=== PATIENT | male | born 1970 | race Caucasian/White ===

== ENCOUNTER 2016-11-07 22:36 | Emergency (ER) | payer MEDICAID ==
[~2016-11-07 22:36] MED LIST: METO25TA3
== END 2016-11-08 04:05 | disposition left against medical advice (07) ==
LOC: ER 22:37
DX: S09.90XA Unspecified injury of head, initial encounter (principal); Z53.21 Procedure and treatment not carried out due to patient leaving prior to being seen by health care provider; X58.XXXA Exposure to other specified factors, initial encounter; Y93.89 Activity, other specified; Y92.89 Other specified places as the place of occurrence of the external cause; Y99.8 Other external cause status
CPT/HCPCS: 70450

== ENCOUNTER 2021-03-12 02:39 | Emergency (ER) | payer MEDICAID ==
[~2021-03-12] VITALS: Ht 185.4 cm; Wt 78.0 kg
[~2021-03-12 02:39] MED LIST changes: -METO25TA3; +METO25TA36
[2021-03-12 05:31] VITALS: BP 119/78
[2021-03-12] MEDS ORDERED: IPRATROPIUM BROM 0.5 MG/2.5ML INH SOL NEB ONE (06:00)
[2021-03-12] MEDS ORDERED: ALBUTEROL SULF 2.5 MG/0.5ML(0.5%) NEB SOLN NEB ONE (06:00)
== END 2021-03-12 06:20 | disposition home or self-care (01) ==
LOC: ER 02:39 → EDBD 02:39 → ER 06:20
DX: J18.1 Lobar pneumonia, unspecified organism (principal); R53.83 Other fatigue; J90 Pleural effusion, not elsewhere classified; R06.02 Shortness of breath; Z20.822 Contact with and (suspected) exposure to COVID-19
CPT/HCPCS: 36415; 71045; 87426; 94640; 99284; J7644

== ENCOUNTER 2021-06-25 16:46 | Inpatient (IN) | payer MEDICAID ==
[~2021-06-25] VITALS: Ht 185.4 cm; Wt 83.3 kg
[2021-06-25] MEDS ORDERED: CLINDAMYCIN 600MG IV 50 ML IV ONE (17:30)
[2021-06-25] MEDS ORDERED: SODIUM CHLORIDE 0.9% 500 ML IV ONE (17:30)
[2021-06-25 18:20] LABS: Basophils # (auto) 0.1 10 ^3/uL (0-0.2); Basophils % (auto) 0.5 % (0.0-2.0); Eosinophils # (auto) 0.1 10 ^3/uL (0-0.8); Eosinophils % (auto) 0.8 % (0.0-7.0); Hematocrit 30.8 % (41.0-53.0); Hemoglobin 9.6 g/dL (13.5-17.5); Lymphocytes # (auto) 1.3 10 ^3/uL (0.4-5.4); Lymphocytes % (auto) 7.1 % (10.0-50.0); Mean Corpuscular Hemoglobin 23.5 pg (28.0-32.0); Mean Corpuscular Hgb Conc. 31.2 g/dL (32.0-36.0); Mean Corpuscular Volume 75.4 fL (80.0-100.0); Monocytes # (auto) 0.7 10 ^3/uL (0-1.3); Monocytes % (auto) 3.6 % (0.0-12.0); Neutrophils # (auto) 15.9 10 ^3/uL (1.6-8.6); Red Blood Cells 4.09 10^6/uL (4.5-5.90); Red Cell Distribution Width 16.8 % (11.8-14.3)
[2021-06-25 18:41] LABS: BUN/Creatinine Ratio 11.1; Calcium 8.4 mg/dL (8.5-10.1); Potassium 3.8 mmol/L (3.5-5.1)
[2021-06-25 18:43] LABS: Bilirubin, Total 0.1 mg/dL (0.2-1.0); Lactic Acid w/Reflex 2.6 mmol/L (0.4-2.0); Total Protein 7.1 g/dL (6.4-8.2)
[2021-06-25] MEDS ORDERED: VANCOMYCIN 1GM/250ML 250 ML IV ONE (21:15)
[2021-06-25] MEDS ORDERED: SODIUM CHLORIDE 0.9% 1,000 ML IV ONE (21:15)
[2021-06-25] MEDS ORDERED: ONDANSETRON HCL 4 MG/2 ML VIAL IV PRN (22:15)
[2021-06-25] MEDS ORDERED: levoFLOXacin 500MG 100 ML IV ONE (22:15)
[2021-06-25] MEDS ORDERED: MORPHINE SULFATE 4 MG/ML SYR/VIAL IV PRN (22:15)
[2021-06-25] MEDS ORDERED: ALBUMIN 5% 250 ML IV ONE (22:15)
[2021-06-25] MEDS ORDERED: ACETAMINOPHEN 325 MG TAB PO PRN (22:15)
[2021-06-25] MEDS ORDERED: CLINDAMYCIN 600MG IV 50 ML IV SCH (22:35)
[2021-06-25] MEDS ORDERED: levoFLOXacin 500MG 100 ML IV SCH (22:36)
[2021-06-25] MEDS: SODIUM CHLORIDE 0.9% 1,000 ML IV SCH (23:24)
[2021-06-25 23:44] LABS: Alcohol, Urine < 3.0 mg/dL (0-10); Amphetamine Screen, Urine NEGATIVE (NEGATIVE); Barbiturate Scree,Urine NEGATIVE (NEGATIVE); Benzodiazephine Screen, Urine NEGATIVE (NEGATIVE); Cannabinoid Screen, Urine NEGATIVE (NEGATIVE); Cocaine Screen, Urine NEGATIVE (NEGATIVE); Opiate Scree,Urine NEGATIVE (NEGATIVE); Phencyclidine Screen, Urine NEGATIVE (NEGATIVE)
[2021-06-26] MEDS: CLINDAMYCIN 600MG IV 50 ML IV SCH ×4 (00:35→22:02)
[2021-06-26 00:43] VITALS: BP 114/66
[2021-06-26 05:00] VITALS: BP 91/58
[2021-06-26 06:15] LABS: Eosinophils # (auto) 0.2 10 ^3/uL (0-0.8); Lymphocytes # (auto) 1.5 10 ^3/uL (0.4-5.4)
[2021-06-26 06:18] LABS: Basophils # (auto) 0.1 10 ^3/uL (0-0.2); Basophils % (auto) 0.4 % (0.0-2.0); Eosinophils % (auto) 1.1 % (0.0-7.0); Hematocrit 26.7 % (41.0-53.0); Hemoglobin 8.5 g/dL (13.5-17.5); Lymphocytes % (auto) 9.3 % (10.0-50.0); Mean Corpuscular Hemoglobin 23.9 pg (28.0-32.0); Mean Corpuscular Volume 74.8 fL (80.0-100.0); Monocytes # (auto) 0.8 10 ^3/uL (0-1.3); Neutrophils # (auto) 13.3 10 ^3/uL (1.6-8.6); Neutrophils % (auto) 84.2 % (37.0-80.0); Red Blood Cells 3.57 10^6/uL (4.5-5.90); Red Cell Distribution Width 17.1 % (11.8-14.3); White Blood Cell 15.8 10^3/uL (4.4-10.8)
[2021-06-26 06:44] LABS: Albumin 1.7 g/dL (3.4-5.0); BUN/Creatinine Ratio 15.4; Calcium 8.1 mg/dL (8.5-10.1); Potassium 4.4 mmol/L (3.5-5.1)
[2021-06-26 06:47] LABS: Bilirubin, Total 0.1 mg/dL (0.2-1.0)
[2021-06-26 08:46] VITALS: BP 90/42
[2021-06-26] MEDS ORDERED: PANTOPRAZOLE 40 MG TAB PO SCH (10:00)
[2021-06-26] MEDS: SODIUM CHLORIDE 0.9% 1,000 ML IV SCH ×2 (10:02→23:17)
[2021-06-26 13:00] VITALS: BP 106/60
[2021-06-26] MEDS ORDERED: LORazepam 2MG/ML-1ML VIAL IV ONE (13:00)
[2021-06-26] MEDS: levoFLOXacin 750MG 150 ML IV SCH (13:01)
[2021-06-26 15:10] LABS: % Iron Saturation 7.8 % (20-55)
[2021-06-26 15:30] LABS: INR 1.16 (0.9-1.15)
[2021-06-26 17:00] VITALS: BP 90/63
[2021-06-26 17:13] LABS: Hepatitis A Ab IgM Negative; Hepatitis B Core IgM Negative; Hepatitis C Antibody Negative (Negative)
[2021-06-26 22:00] VITALS: BP 117/57
[2021-06-27 05:00] VITALS: BP 101/61
[2021-06-27] MEDS: CLINDAMYCIN 600MG IV 50 ML IV SCH ×2 (05:40→15:00)
[2021-06-27] MEDS: levoFLOXacin 750MG 150 ML IV SCH (09:35)
[2021-06-27] MEDS ORDERED: ONDANSETRON HCL 4 MG/2 ML VIAL ONE (10:06)
[2021-06-27] MEDS ORDERED: SODIUM CHLORIDE LOCK 10 ML ONE (10:06)
[2021-06-27] MEDS ORDERED: PROPOFOL 10 MG/ML 20 ML IV ONE (10:06)
[2021-06-27] MEDS ORDERED: fentaNYL CITRATE 100 MCG/2 ML VL ONE (10:06)
[2021-06-27] MEDS ORDERED: DexAMETHasone SOD PHOS 10MG/1ML VIAL INJ ONE (10:06)
[2021-06-27] MEDS ORDERED: MIDAZOLAM HCL 2MG/2ML 2ml VIAL (1mg/ml) ONE (10:06)
[2021-06-27] MEDS: SODIUM CHLORIDE 0.9% 1,000 ML IV SCH (11:45)
[2021-06-27 13:00] VITALS: BP 92/60
[2021-06-27] MEDS ORDERED: VANCOMYCIN PER PHARMACY 0 MG IV SCH (16:15)
[2021-06-27] MEDS ORDERED: CEFTRIAXONE SODIUM 2 GM in D5W 5% 50 ML IV ONE (16:15)
[2021-06-27 17:00] VITALS: BP 111/59
[2021-06-27] MEDS: VANCOMYCIN 1GM/250ML 250 ML IV SCH (18:21)
[2021-06-27] MEDS: HYDROcodone-ACET 5/325MG TAB PO PRN (21:06)
[2021-06-27 22:00] VITALS: BP 123/58
[2021-06-28] MEDS: VANCOMYCIN 1GM/250ML 250 ML IV SCH ×3 (02:00→18:07)
[2021-06-28] MEDS: SODIUM CHLORIDE 0.9% 1,000 ML IV SCH ×2 (02:16→18:07)
[2021-06-28 05:00] VITALS: BP 100/62
[2021-06-28 05:55] LABS: Basophils # (auto) 0.1 10 ^3/uL (0-0.2); Eosinophils # (auto) 0.2 10 ^3/uL (0-0.8); Monocytes # (auto) 0.5 10 ^3/uL (0-1.3)
[2021-06-28 06:00] LABS: Basophils % (auto) 0.8 % (0.0-2.0); Eosinophils % (auto) 2.2 % (0.0-7.0); Hemoglobin 9.1 g/dL (13.5-17.5); Lymphocytes # (auto) 1.6 10 ^3/uL (0.4-5.4); Lymphocytes % (auto) 17.1 % (10.0-50.0); Mean Corpuscular Hgb Conc. 33.6 g/dL (32.0-36.0); Mean Corpuscular Volume 74.4 fL (80.0-100.0); Monocytes % (auto) 4.9 % (0.0-12.0); Red Blood Cells 3.64 10^6/uL (4.5-5.90); Red Cell Distribution Width 17.2 % (11.8-14.3); White Blood Cell 9.3 10^3/uL (4.4-10.8)
[2021-06-28 06:10] LABS: Albumin 1.7 g/dL (3.4-5.0); Calcium 7.7 mg/dL (8.5-10.1); Magnesium 1.9 mg/dL (1.6-2.6)
[2021-06-28 06:14] LABS: Potassium 3.7 mmol/L (3.5-5.1)
[2021-06-28 06:20] LABS: Bilirubin, Total 0.1 mg/dL (0.2-1.0)
[2021-06-28 07:24] LABS: BUN/Creatinine Ratio 23.5
[2021-06-28 09:00] VITALS: BP 99/71
[2021-06-28] MEDS: CEFTRIAXONE SODIUM 2 GM in D5W 5% 50 ML IV SCH (09:15)
[2021-06-28 12:00] VITALS: BP 94/57
[2021-06-28] MEDS ORDERED: CLINDAMYCIN 600MG IV 50 ML IV ONE (13:29)
[2021-06-28] MEDS ORDERED: METOCLOPRAMIDE HCL 5MG/ml INJ 2ml VIAL IV ONE (13:35)
[2021-06-28] MEDS ORDERED: MEPERIDINE HCL (25 MG/ML) 1ML VIAL ONE (13:49)
[2021-06-28] MEDS ORDERED: fentaNYL CITRATE 100 MCG/2 ML VL ONE (13:49)
[2021-06-28] MEDS ORDERED: MIDAZOLAM HCL 2MG/2ML 2ml VIAL (1mg/ml) ONE (13:49)
[2021-06-28] MEDS ORDERED: DexAMETHasone SOD PHOS 10MG/1ML VIAL INJ ONE (13:50)
[2021-06-28] MEDS ORDERED: PROPOFOL 10 MG/ML 20 ML IV ONE (13:50)
[2021-06-28] MEDS ORDERED: MORPHINE SULFATE INJECTION 2 MG/ML SYRG ONE (14:38)
[2021-06-28] MEDS ORDERED: MIDAZOLAM HCL 2MG/2ML 2ml VIAL (1mg/ml) IV PRN (14:45)
[2021-06-28] MEDS ORDERED: ePHEDrine SULFATE 50 MG/ML AMP IV PRN (14:45)
[2021-06-28] MEDS ORDERED: ONDANSETRON HCL 4 MG/2 ML VIAL IV PRN (14:45)
[2021-06-28] MEDS ORDERED: MORPHINE SULFATE 4 MG/ML SYR/VIAL IV PRN (14:45)
[2021-06-28] MEDS ORDERED: HYDROmorphone HCL 2 MG/ML VL IV PRN (14:45)
[2021-06-28] MEDS ORDERED: LABETALOL HCL 5 MG/ML 4ML SYRINGE IV PRN (14:45)
[2021-06-28 16:00] VITALS: BP 128/57
[2021-06-28] MEDS: Ensure HIGH Protein Vanilla 8oz Bottle PO SCH (18:00)
[2021-06-28 22:13] VITALS: BP 125/58
[2021-06-28] MEDS: MORPHINE SULFATE 4 MG/ML SYR/VIAL IV PRN (23:00)
[2021-06-29] MEDS: SODIUM CHLORIDE 0.9% 1,000 ML IV SCH ×2 (01:52→13:45)
[2021-06-29] MEDS: VANCOMYCIN 1GM/250ML 250 ML IV SCH ×3 (01:53→17:09)
[2021-06-29 04:13] VITALS: BP 118/64
[2021-06-29 09:01] VITALS: BP 134/60
[2021-06-29] MEDS: Ensure HIGH Protein Vanilla 8oz Bottle PO SCH ×2 (09:14→17:09)
[2021-06-29] MEDS: MORPHINE SULFATE 4 MG/ML SYR/VIAL IV PRN ×2 (10:02→18:07)
[2021-06-29] MEDS: CEFTRIAXONE SODIUM 2 GM in D5W 5% 50 ML IV SCH (11:08)
[2021-06-29] MEDS ORDERED: GADOTERATE MEG 7.5 MMOL/15ml INJ (0.5MMOL/ml) IV ONE (11:11)
[2021-06-29 13:00] VITALS: BP 111/50
[2021-06-29 17:00] VITALS: BP 118/57
[2021-06-29] MEDS: FERROUS SULFATE 325mg EC TAB PO SCH (17:09)
[2021-06-29] MEDS: HYDROcodone-ACET 5/325MG TAB PO PRN (17:10)
[2021-06-29 22:00] VITALS: BP 116/58
[2021-06-30] MEDS: VANCOMYCIN 1GM/250ML 250 ML IV SCH ×3 (02:00→17:59)
[2021-06-30 05:00] VITALS: BP 100/57
[2021-06-30] MEDS: Ensure HIGH Protein Vanilla 8oz Bottle PO SCH ×2 (08:09→17:59)
[2021-06-30] MEDS: FERROUS SULFATE 325mg EC TAB PO SCH ×2 (08:09→17:59)
[2021-06-30 09:00] VITALS: BP 108/50
[2021-06-30] MEDS: CEFTRIAXONE SODIUM 2 GM in D5W 5% 50 ML IV SCH (09:31)
[2021-06-30 09:53] LABS: BUN/Creatinine Ratio 26.4; Calcium 8.2 mg/dL (8.5-10.1); Potassium 4.1 mmol/L (3.5-5.1)
[2021-06-30 13:00] VITALS: BP 121/61
[2021-06-30] MEDS: HYDROcodone-ACET 5/325MG TAB PO PRN (13:15)
[2021-06-30 17:00] VITALS: BP 126/58
[2021-06-30 22:00] VITALS: BP 129/62
[2021-07-01] MEDS: TEMAZEPAM 15 MG CAP PO PRN (00:39)
[2021-07-01] MEDS: VANCOMYCIN 1GM/250ML 250 ML IV SCH ×3 (03:00→21:00)
[2021-07-01 05:00] VITALS: BP 117/63
[2021-07-01] MEDS: FERROUS SULFATE 325mg EC TAB PO SCH ×2 (08:00→18:00)
[2021-07-01] MEDS: Ensure HIGH Protein Vanilla 8oz Bottle PO SCH ×2 (08:08→18:03)
[2021-07-01 09:00] VITALS: BP 119/68
[2021-07-01] MEDS: CEFTRIAXONE SODIUM 2 GM in D5W 5% 50 ML IV SCH (09:14)
[2021-07-01] MEDS: HYDROcodone-ACET 5/325MG TAB PO PRN ×2 (11:01→18:58)
[2021-07-01 13:00] VITALS: BP 111/68
[2021-07-01 17:00] VITALS: BP 100/70
[2021-07-01 22:00] VITALS: BP 110/81
[2021-07-02 05:00] VITALS: BP 107/55
[2021-07-02 05:42] LABS: Basophils # (auto) 0.1 10 ^3/uL (0-0.2); Eosinophils # (auto) 0.1 10 ^3/uL (0-0.8); Eosinophils % (auto) 1.6 % (0.0-7.0); Lymphocytes # (auto) 1.8 10 ^3/uL (0.4-5.4); Neutrophils # (auto) 6.1 10 ^3/uL (1.6-8.6); Nucleated Red Blood Cells % 0.1 %; White Blood Cell 8.6 10^3/uL (4.4-10.8)
[2021-07-02 05:44] LABS: Basophils % (auto) 0.6 % (0.0-2.0); Hematocrit 26.9 % (41.0-53.0); Hemoglobin 8.9 g/dL (13.5-17.5); Lymphocytes % (auto) 20.6 % (10.0-50.0); Mean Corpuscular Hemoglobin 24.5 pg (28.0-32.0); Mean Corpuscular Volume 74.2 fL (80.0-100.0); Monocytes # (auto) 0.6 10 ^3/uL (0-1.3); Monocytes % (auto) 6.7 % (0.0-12.0); Neutrophils % (auto) 70.5 % (37.0-80.0); Red Blood Cells 3.63 10^6/uL (4.5-5.90); Red Cell Distribution Width 17.1 % (11.8-14.3)
[2021-07-02] MEDS: VANCOMYCIN 1GM/250ML 250 ML IV SCH ×3 (05:58→23:46)
[2021-07-02 06:13] LABS: Alanine Aminotransferase 41 U/L (16-61); Anion Gap 6 (5-15); Aspartate Aminotransferase 19 U/L (15-37); BUN/Creatinine Ratio 24.4; Blood Urea Nitrogen 20 mg/dL (7-18); Calcium 7.9 mg/dL (8.5-10.1); Carbon Dioxide 25 mmol/L (21-32); Chloride 109 mmol/L (98-107); GFR African American 128 mL/min; GFR Non-African American 106 mL/min; Glucose 93 mg/dL (74-106); Potassium 4.4 mmol/L (3.5-5.1); Sodium 140 mmol/L (136-145)
[2021-07-02 06:16] LABS: Alkaline Phosphatase 122 U/L (45-117); Bilirubin, Total < 0.1 mg/dL (0.2-1.0); Total Protein 5.9 g/dL (6.4-8.2)
[2021-07-02] MEDS: HYDROcodone-ACET 5/325MG TAB PO PRN ×2 (08:04→14:29)
[2021-07-02] MEDS: FERROUS SULFATE 325mg EC TAB PO SCH ×2 (08:04→18:00)
[2021-07-02] MEDS: Ensure HIGH Protein Vanilla 8oz Bottle PO SCH ×2 (08:04→18:00)
[2021-07-02 08:31] VITALS: BP 115/59
[2021-07-02] MEDS: CEFTRIAXONE SODIUM 2 GM in D5W 5% 50 ML IV SCH (09:18)
[2021-07-02 12:34] VITALS: BP 127/63
[2021-07-02 16:29] VITALS: BP 17/61
[2021-07-02] MEDS: Pro-Stat SF 30ml Vanilla PO SCH (18:00)
[2021-07-02 22:00] VITALS: BP 120/67
[2021-07-02] MEDS: TEMAZEPAM 15 MG CAP PO PRN (23:44)
[2021-07-03 05:04] VITALS: BP 116/65
[2021-07-03 09:00] VITALS: BP 121/53
[2021-07-03] MEDS: FERROUS SULFATE 325mg EC TAB PO SCH ×2 (09:58→18:39)
[2021-07-03] MEDS: Pro-Stat SF 30ml Vanilla PO SCH ×2 (09:59→18:41)
[2021-07-03] MEDS: VANCOMYCIN 1GM/250ML 250 ML IV SCH (09:59)
[2021-07-03] MEDS: Ensure HIGH Protein Vanilla 8oz Bottle PO SCH ×2 (09:59→18:41)
[2021-07-03] MEDS: CEFTRIAXONE SODIUM 2 GM in D5W 5% 50 ML IV SCH (11:19)
[2021-07-03] MEDS: HYDROcodone-ACET 5/325MG TAB PO PRN (12:25)
[2021-07-03 13:36] VITALS: BP 124/61
[2021-07-03 16:53] VITALS: BP 118/60
[2021-07-03] MEDS ORDERED: VANCOMYCIN 1GM/250ML 250 ML IV SCH (18:00)
[2021-07-03] MEDS: MORPHINE SULFATE 4 MG/ML SYR/VIAL IV PRN (18:47)
[2021-07-03 22:00] VITALS: BP 132/62
[2021-07-04] MEDS: TEMAZEPAM 15 MG CAP PO PRN (01:02)
[2021-07-04 05:00] VITALS: BP 111/56
[2021-07-04] MEDS: Pro-Stat SF 30ml Vanilla PO SCH (08:00)
[2021-07-04] MEDS: Ensure HIGH Protein Vanilla 8oz Bottle PO SCH (08:00)
[2021-07-04 09:00] VITALS: BP 132/67
[2021-07-04] MEDS ORDERED: HYDR1TAB97 PO (09:09)
[2021-07-04] MEDS ORDERED: FER325T PO (09:09)
[2021-07-04] MEDS: HYDROcodone-ACET 5/325MG TAB PO PRN (09:11)
[2021-07-04] MEDS: FERROUS SULFATE 325mg EC TAB PO SCH (09:11)
[2021-07-04] MEDS: CEFTRIAXONE SODIUM 2 GM in D5W 5% 50 ML IV SCH (09:12)
[2021-07-04 12:00] VITALS: BP 132/67
[2021-07-04 12:35] VITALS: BP 110/63
== END 2021-07-04 13:55 | disposition home health service (06) | DRG 720 ==
LOC: ER 16:46 → OVERFLOW 22:15 → CENTRAL 23:39
PROVIDERS: ADMIT Nurse Practitioner; ATTEND Internal Medicine
PROC: 0JBG0ZZ Excision of Right Lower Arm Subcutaneous Tissue and Fascia, Open Approach (ICD-10-PCS; 2021-06-28)
PROC: 05HC33Z Insertion of Infusion Device into Left Basilic Vein, Percutaneous Approach (ICD-10-PCS; principal; 2021-07-01)
PROC: B54NZZA Ultrasonography of Left Upper Extremity Veins, Guidance (ICD-10-PCS; 2021-07-01)
DX: A41.9 Sepsis, unspecified organism (principal); E43 Unspecified severe protein-calorie malnutrition; E87.1 Hypo-osmolality and hyponatremia; F12.90 Cannabis use, unspecified, uncomplicated; D75.839 Thrombocytosis, unspecified; D50.9 Iron deficiency anemia, unspecified; L03.113 Cellulitis of right upper limb; L02.413 Cutaneous abscess of right upper limb; I10 Essential (primary) hypertension; M19.021 Primary osteoarthritis, right elbow; Z20.822 Contact with and (suspected) exposure to COVID-19; L02.414 Cutaneous abscess of left upper limb; M60.841 Other myositis, right hand; W57.XXXA Bitten or stung by nonvenomous insect and other nonvenomous arthropods, initial encounter; Z59.00 Homelessness unspecified; Z82.49 Family history of ischemic heart disease and other diseases of the circulatory system; Z88.0 Allergy status to penicillin; Z88.5 Allergy status to narcotic agent; Z68.21 Body mass index [BMI] 21.0-21.9, adult; Y93.89 Activity, other specified; Y92.89 Other specified places as the place of occurrence of the external cause; Y99.8 Other external cause status
CPT/HCPCS: 36415; 71045; 72148; 73200; 73218; 74176; 80048; 80053; 80074; 80202; 80307; 82565; 83036; 83540; 83550; 83605; 83735; 85025; 85610; 85652; 86850; 86900; 86901; 87040; 87070; 87075; 87077; 87205; 96365; 96367; 96368; G0378; J0696; J1100; J1956; J2250; J2405; J2704; J3490; J7060

== ENCOUNTER 2021-09-05 17:46 | Emergency (ER) | payer MEDICAID ==
[~2021-09-05] VITALS: Ht 175.3 cm; Wt 72.6 kg
[~2021-09-05 17:46] MED LIST changes: +FER325T PO; +HYDR1TAB97 PO; -METO25TA36
[2021-09-05 17:49] VITALS: BP 132/82
== END 2021-09-05 19:02 | disposition home or self-care (01) ==
LOC: EDBD 17:46 → ER 17:46
DX: Z45.2 Encounter for adjustment and management of vascular access device (principal); I10 Essential (primary) hypertension; Z79.899 Other long term (current) drug therapy; Z88.0 Allergy status to penicillin; Z88.5 Allergy status to narcotic agent

== ENCOUNTER 2021-12-29 23:33 | Emergency (ER) | payer MEDICAID ==
[~2021-12-29] VITALS: Ht 185.4 cm; Wt 72.0 kg
[2021-12-30] MEDS ORDERED: KETOROLAC TROMETH 60MG/2ML VIAL IM ONE (00:45)
[2021-12-30 01:05] LABS: Basophils # (auto) 0.1 10 ^3/uL (0-0.2); Eosinophils # (auto) 0.1 10 ^3/uL (0-0.8); Hemoglobin 8.9 g/dL (13.5-17.5); Mean Corpuscular Hgb Conc. 31.3 g/dL (32.0-36.0); Neutrophils # (auto) 5.6 10 ^3/uL (1.6-8.6); White Blood Cell 7.9 10^3/uL (4.4-10.8)
[2021-12-30 01:06] LABS: Eosinophils % (auto) 1.7 % (0.0-7.0); Hematocrit 28.4 % (41.0-53.0); Lymphocytes # (auto) 1.4 10 ^3/uL (0.4-5.4); Lymphocytes % (auto) 18.3 % (10.0-50.0); Mean Corpuscular Hemoglobin 19.5 pg (28.0-32.0); Mean Corpuscular Volume 62.4 fL (80.0-100.0); Monocytes # (auto) 0.6 10 ^3/uL (0-1.3); Monocytes % (auto) 7.8 % (0.0-12.0); Neutrophils % (auto) 71.2 % (37.0-80.0); Red Blood Cells 4.56 10^6/uL (4.5-5.90); Red Cell Distribution Width 17.1 % (11.8-14.3)
[2021-12-30 01:28] LABS: Albumin 2.8 g/dL (3.4-5.0); Calcium 7.8 mg/dL (8.5-10.1); Magnesium 2.2 mg/dL (1.6-2.6); Potassium 4.2 mmol/L (3.5-5.1)
[2021-12-30 01:31] LABS: BUN/Creatinine Ratio 16.3; Bilirubin, Total 0.2 mg/dL (0.2-1.0); Total Protein 5.8 g/dL (6.4-8.2)
[2021-12-30 04:00] VITALS: BP 118/80
== END 2021-12-30 05:12 | disposition home or self-care (01) ==
LOC: EDBD 23:33 → ER 23:33
DX: G89.29 Other chronic pain (principal); M25.551 Pain in right hip; M54.9 Dorsalgia, unspecified; R07.89 Other chest pain; Z79.899 Other long term (current) drug therapy; Z88.0 Allergy status to penicillin; Z88.5 Allergy status to narcotic agent
CPT/HCPCS: 36415; 71045; 80053; 83735; 83880; 84484; 85025; 93005; 96372; 99285; J1885

== ENCOUNTER 2022-03-20 13:45 | Inpatient (IN) | payer MEDICAID ==
[~2022-03-20] VITALS: Ht 170.2 cm; Wt 71.0 kg
[2022-03-20] MEDS ORDERED: CLINDAMYCIN 600MG IV 50 ML IV ONE (14:00)
[2022-03-20 14:27] LABS: Eosinophils # (auto) 0 10 ^3/uL (0-0.8); Hemoglobin 8.3 g/dL (13.5-17.5); Lymphocytes # (auto) 0.4 10 ^3/uL (0.4-5.4); Lymphocytes % (auto) 2.2 % (10.0-50.0)
[2022-03-20 14:30] LABS: Basophils # (auto) 0.1 10 ^3/uL (0-0.2); Basophils % (auto) 0.3 % (0.0-2.0); Hematocrit 26.9 % (41.0-53.0); Mean Corpuscular Hemoglobin 18.9 pg (28.0-32.0); Monocytes # (auto) 0.7 10 ^3/uL (0-1.3); Monocytes % (auto) 3.3 % (0.0-12.0); Neutrophils # (auto) 18.6 10 ^3/uL (1.6-8.6); Neutrophils % (auto) 94.2 % (37.0-80.0); Red Blood Cells 4.41 10^6/uL (4.5-5.90); Red Cell Distribution Width 18.3 % (11.8-14.3); White Blood Cell 19.7 10^3/uL (4.4-10.8)
[2022-03-20 14:41] LABS: Albumin 2.6 g/dL (3.4-5.0); Calcium 8.3 mg/dL (8.5-10.1); Potassium 4.1 mmol/L (3.5-5.1)
[2022-03-20 14:45] LABS: Bilirubin, Total 0.3 mg/dL (0.2-1.0); Total Protein 6.6 g/dL (6.4-8.2)
[2022-03-20] MEDS ORDERED: ACETAMINOPHEN 325 MG TAB PO PRN (16:45)
[2022-03-20] MEDS ORDERED: ONDANSETRON HCL 4 MG/2 ML VIAL IV PRN (16:45)
[2022-03-20] MEDS ORDERED: DOCUSATE SOD 100 MG CAP PO PRN (16:45)
[2022-03-20] MEDS: SODIUM CHLOR 0.9% PF (SALINE LOCK) 10ML VIAL/SYR IV SCH (22:00)
[2022-03-20] MEDS: FERROUS SULFATE 325mg EC TAB PO SCH (23:15)
[2022-03-20] MEDS: HYDROcodone-ACET 5/325MG TAB PO PRN (23:18)
[2022-03-21 01:29] LABS: Urine Bacteria NONE SEEN /hpf (None Seen); Urine Blood TRACE /uL (Negative); Urine Mucus FEW (None Seen); Urine Specific Gravity 1.031 (1.001-1.035); Urine WBC 4 /hpf (0 - 3)
[2022-03-21 05:53] LABS: Basophils # (auto) 0 10 ^3/uL (0-0.2); Basophils % (auto) 0.3 % (0.0-2.0); Eosinophils # (auto) 0 10 ^3/uL (0-0.8); Eosinophils % (auto) 0.1 % (0.0-7.0); Lymphocytes # (auto) 0.7 10 ^3/uL (0.4-5.4); White Blood Cell 10.8 10^3/uL (4.4-10.8)
[2022-03-21 05:55] LABS: Hematocrit 24.3 % (41.0-53.0); Hemoglobin 7.5 g/dL (13.5-17.5); Lymphocytes % (auto) 6.5 % (10.0-50.0); Mean Corpuscular Hemoglobin 18.9 pg (28.0-32.0); Mean Corpuscular Volume 60.8 fL (80.0-100.0); Monocytes # (auto) 0.9 10 ^3/uL (0-1.3); Monocytes % (auto) 8.2 % (0.0-12.0); Neutrophils # (auto) 9.2 10 ^3/uL (1.6-8.6); Neutrophils % (auto) 84.9 % (37.0-80.0); Red Cell Distribution Width 18.1 % (11.8-14.3)
[2022-03-21] MEDS: SODIUM CHLOR 0.9% PF (SALINE LOCK) 10ML VIAL/SYR IV SCH ×3 (06:04→22:28)
[2022-03-21 06:07] LABS: Potassium 3.9 mmol/L (3.5-5.1)
[2022-03-21 06:16] LABS: Albumin 2.4 g/dL (3.4-5.0); BUN/Creatinine Ratio 20.4; Bilirubin, Total 0.4 mg/dL (0.2-1.0); Calcium 8.1 mg/dL (8.5-10.1); Total Protein 6.8 g/dL (6.4-8.2)
[2022-03-21] MEDS ORDERED: AMPICILLIN & SULBACTAM SODIUM 3 GM in SODIUM CHL 0.9% 100 ML IV SCH (07:45)
[2022-03-21] MEDS ORDERED: POLYETHYLENE GLYCOL 17 GM PWDR PO ONE (07:45)
[2022-03-21 08:06] LABS: % Iron Saturation 2.7 % (20-55)
[2022-03-21 08:14] LABS: Thyroid Stimulating Hormone 0.69 uIU/mL (0.358-3.74)
[2022-03-21 08:23] LABS: Ferritin 58.6 ng/mL (10-322)
[2022-03-21 08:24] LABS: Folate (Folic Acid) 12.95 ng/mL (5.38-24)
[2022-03-21 09:08] LABS: Alcohol, Urine < 3.0 mg/dL (0-10); Amphetamine Screen, Urine POSITIVE (NEGATIVE); Barbiturate Scree,Urine NEGATIVE (NEGATIVE); Benzodiazephine Screen, Urine NEGATIVE (NEGATIVE); Cannabinoid Screen, Urine NEGATIVE (NEGATIVE); Cocaine Screen, Urine NEGATIVE (NEGATIVE); Phencyclidine Screen, Urine NEGATIVE (NEGATIVE)
[2022-03-21 09:17] LABS: Opiate Scree,Urine NEGATIVE (NEGATIVE)
[2022-03-21] MEDS ORDERED: FUROSEMIDE 20 MG/2 ML VIAL IV ONE (09:30)
[2022-03-21] MEDS ORDERED: ERGOCALCIFEROL 50,000 UNIT(1.25MG) CAP PO SCH (10:30)
[2022-03-21] MEDS: PANTOPRAZOLE 40 MG/10 ML VIAL INJ IV SCH (11:25)
[2022-03-21] MEDS: FERROUS SULFATE 325mg EC TAB PO SCH ×2 (11:25→18:00)
[2022-03-21] MEDS: HYDROcodone-ACET 5/325MG TAB PO PRN ×2 (11:26→23:24)
[2022-03-21] MEDS: ENOXAPARIN SOD 40 MG/0.4 ML SYRINGE SC SCH (11:26)
[2022-03-21] MEDS: SODIUM FERR GLUC 62.5MG/5ML 125 MG in SODIUM CHL 0.9% 100 ML IV SCH (12:00)
[2022-03-21] MEDS: CEFTRIAXONE SODIUM 2 GM in D5W 5% 50 ML IV SCH (12:45)
[2022-03-21 20:26] VITALS: BP 114/62
[2022-03-21 22:00] VITALS: BP 114/62
[2022-03-22 05:00] VITALS: BP 113/64
[2022-03-22] MEDS: SODIUM CHLOR 0.9% PF (SALINE LOCK) 10ML VIAL/SYR IV SCH ×3 (06:07→22:01)
[2022-03-22 09:10] VITALS: BP 112/75
[2022-03-22] MEDS: FERROUS SULFATE 325mg EC TAB PO SCH ×2 (09:45→17:25)
[2022-03-22] MEDS: ENOXAPARIN SOD 40 MG/0.4 ML SYRINGE SC SCH (09:45)
[2022-03-22] MEDS: HYDROcodone-ACET 5/325MG TAB PO PRN ×2 (09:46→20:19)
[2022-03-22] MEDS: CEFTRIAXONE SODIUM 2 GM in D5W 5% 50 ML IV SCH (09:46)
[2022-03-22] MEDS: PANTOPRAZOLE 40 MG/10 ML VIAL INJ IV SCH (09:46)
[2022-03-22] MEDS ORDERED: LACTULOSE 20Gm/30ML SOLN PO ONE (11:30)
[2022-03-22] MEDS: SODIUM FERR GLUC 62.5MG/5ML 125 MG in SODIUM CHL 0.9% 100 ML IV SCH (12:00)
[2022-03-22] MEDS ORDERED: guaiFENesin 200 MG/10 ML UD GT PRN (13:00)
[2022-03-22 13:19] VITALS: BP 118/53
[2022-03-22 17:00] VITALS: BP 100/60
[2022-03-22 21:47] VITALS: BP 115/63
[2022-03-23 05:53] VITALS: BP 123/61
[2022-03-23] MEDS ORDERED: FUROSEMIDE 20 MG/2 ML VIAL IV ONE (06:00)
[2022-03-23] MEDS: SODIUM CHLOR 0.9% PF (SALINE LOCK) 10ML VIAL/SYR IV SCH ×3 (06:27→22:00)
[2022-03-23 06:42] LABS: Eosinophils # (auto) 0.1 10 ^3/uL (0-0.8); Lymphocytes # (auto) 0.9 10 ^3/uL (0.4-5.4); Monocytes # (auto) 0.5 10 ^3/uL (0-1.3)
[2022-03-23 06:44] LABS: Basophils # (auto) 0.1 10 ^3/uL (0-0.2); Basophils % (auto) 0.8 % (0.0-2.0); Eosinophils % (auto) 1.6 % (0.0-7.0); Hematocrit 27.4 % (41.0-53.0); Hemoglobin 8.5 g/dL (13.5-17.5); Lymphocytes % (auto) 11.5 % (10.0-50.0); Mean Corpuscular Hemoglobin 19.4 pg (28.0-32.0); Mean Corpuscular Volume 62.6 fL (80.0-100.0); Monocytes % (auto) 6.3 % (0.0-12.0); Neutrophils % (auto) 79.8 % (37.0-80.0); Red Blood Cells 4.38 10^6/uL (4.5-5.90); Red Cell Distribution Width 18.6 % (11.8-14.3); White Blood Cell 7.5 10^3/uL (4.4-10.8)
[2022-03-23 07:06] LABS: Albumin 2.3 g/dL (3.4-5.0); BUN/Creatinine Ratio 21.3; Calcium 8.7 mg/dL (8.5-10.1); Potassium 4.6 mmol/L (3.5-5.1)
[2022-03-23 07:08] LABS: Bilirubin, Total 0.1 mg/dL (0.2-1.0); Total Protein 6.6 g/dL (6.4-8.2)
[2022-03-23 09:00] VITALS: BP 94/56
[2022-03-23] MEDS: CEFTRIAXONE SODIUM 2 GM in D5W 5% 50 ML IV SCH (09:57)
[2022-03-23] MEDS: PANTOPRAZOLE 40 MG/10 ML VIAL INJ IV SCH (09:57)
[2022-03-23] MEDS: FERROUS SULFATE 325mg EC TAB PO SCH ×2 (09:57→17:13)
[2022-03-23] MEDS: ENOXAPARIN SOD 40 MG/0.4 ML SYRINGE SC SCH (09:58)
[2022-03-23] MEDS: HYDROcodone-ACET 5/325MG TAB PO PRN ×2 (09:59→13:16)
[2022-03-23] MEDS ORDERED: ERGO1CAP23 PO (10:21)
[2022-03-23] MEDS ORDERED: CEPH-510 PO (10:21)
[2022-03-23] MEDS: SODIUM FERR GLUC 62.5MG/5ML 125 MG in SODIUM CHL 0.9% 100 ML IV SCH (12:01)
[2022-03-23 13:00] VITALS: BP 104/58
[2022-03-23 13:21] VITALS: BP 123/61
[2022-03-23 17:00] VITALS: BP 133/54
[2022-03-23 22:00] VITALS: BP 105/59
[2022-03-24 05:00] VITALS: BP 111/65
[2022-03-24] MEDS: SODIUM CHLOR 0.9% PF (SALINE LOCK) 10ML VIAL/SYR IV SCH ×2 (05:48→13:38)
[2022-03-24] MEDS: FERROUS SULFATE 325mg EC TAB PO SCH (08:00)
[2022-03-24] MEDS: CEFTRIAXONE SODIUM 2 GM in D5W 5% 50 ML IV SCH (09:14)
[2022-03-24] MEDS: PANTOPRAZOLE 40 MG/10 ML VIAL INJ IV SCH (09:14)
[2022-03-24] MEDS: ENOXAPARIN SOD 40 MG/0.4 ML SYRINGE SC SCH (09:15)
[2022-03-24] MEDS: SODIUM FERR GLUC 62.5MG/5ML 125 MG in SODIUM CHL 0.9% 100 ML IV SCH (12:00)
== END 2022-03-24 14:41 | disposition home or self-care (01) | DRG 383 ==
LOC: EDBD 13:45 → ER 13:45 → OVERFLOW 16:42 → EAST 03-21 19:48
PROVIDERS: ADMIT Nurse Practitioner Family; ATTEND Internal Medicine
DX: L03.115 Cellulitis of right lower limb (principal); E44.0 Moderate protein-calorie malnutrition; D64.9 Anemia, unspecified; E55.9 Vitamin D deficiency, unspecified; F15.10 Other stimulant abuse, uncomplicated; D50.9 Iron deficiency anemia, unspecified; L03.116 Cellulitis of left lower limb; I10 Essential (primary) hypertension; Z20.822 Contact with and (suspected) exposure to COVID-19; W57.XXXA Bitten or stung by nonvenomous insect and other nonvenomous arthropods, initial encounter; Y93.89 Activity, other specified; Z88.0 Allergy status to penicillin; Z88.5 Allergy status to narcotic agent; Z68.24 Body mass index [BMI] 24.0-24.9, adult; Z82.49 Family history of ischemic heart disease and other diseases of the circulatory system; Y92.89 Other specified places as the place of occurrence of the external cause; Y99.8 Other external cause status
CPT/HCPCS: 36415; 71045; 73610; 80053; 80307; 81001; 82306; 82607; 82728; 82746; 83540; 83550; 83615; 84443; 85025; 85045; 85652; 86141; 87426; 93970; C9113; G0378; J0696; J2405; J3490; J7060

== ENCOUNTER 2022-06-25 13:22 | Emergency (ER) | payer MEDICAID ==
[~2022-06-25] VITALS: Ht 185.4 cm; Wt 95.0 kg
[~2022-06-25 13:22] MED LIST changes: +CEPH-510 PO; +ERGO1CAP23 PO; -HYDR1TAB97 PO
[2022-06-25 14:42] VITALS: BP 136/84
[2022-06-25 16:17] LABS: Basophils # (auto) 0.1 10 ^3/uL (0-0.2); Eosinophils # (auto) 0.1 10 ^3/uL (0-0.8); Lymphocytes # (auto) 1.3 10 ^3/uL (0.4-5.4); Mean Corpuscular Hemoglobin 19.8 pg (28.0-32.0); Monocytes # (auto) 0.4 10 ^3/uL (0-1.3); Red Cell Distribution Width 17.6 % (11.8-14.3)
[2022-06-25 16:20] LABS: Basophils % (auto) 0.9 % (0.0-2.0); Eosinophils % (auto) 0.9 % (0.0-7.0); Hematocrit 39.2 % (41.0-53.0); Lymphocytes % (auto) 15.2 % (10.0-50.0); Mean Corpuscular Hgb Conc. 30.6 g/dL (32.0-36.0); Mean Corpuscular Volume 64.7 fL (80.0-100.0); Monocytes % (auto) 4.2 % (0.0-12.0); Neutrophils # (auto) 6.7 10 ^3/uL (1.6-8.6); Neutrophils % (auto) 78.8 % (37.0-80.0); Nucleated Red Blood Cells % 0.2 %; Red Blood Cells 6.06 10^6/uL (4.5-5.90); White Blood Cell 8.5 10^3/uL (4.4-10.8)
[2022-06-25 16:35] LABS: Albumin 3.4 g/dL (3.4-5.0); Potassium 4.5 mmol/L (3.5-5.1)
[2022-06-25 16:38] LABS: Bilirubin, Total 0.4 mg/dL (0.2-1.0); Total Protein 7.3 g/dL (6.4-8.2)
[2022-06-25] MEDS ORDERED: NAP500T PO (20:17)
== END 2022-06-25 22:26 | disposition home or self-care (01) ==
LOC: EDBD 13:22 → ER 13:22 → EDUNIT# 13:22 → ER 22:26
DX: M25.551 Pain in right hip (principal); R07.89 Other chest pain; M41.9 Scoliosis, unspecified
CPT/HCPCS: 36415; 71046; 72100; 73502; 80053; 84484; 85025

== ENCOUNTER 2022-10-23 14:10 | Inpatient (IN) | payer MEDICAID ==
[~2022-10-23] VITALS: Ht 182.9 cm; Wt 69.2 kg
[~2022-10-23 14:10] MED LIST changes: +NAP500T PO
[2022-10-23] MEDS ORDERED: HYDROmorphone HCL 2 MG/ML VL/or syr IM ONE (15:00)
[2022-10-23 15:58] LABS: Basophils # (auto) 0.1 10 ^3/uL (0-0.2); Basophils % (auto) 0.3 % (0.0-2.0); Eosinophils # (auto) 0 10 ^3/uL (0-0.8); Hematocrit 31.1 % (41.0-53.0); Hemoglobin 9.3 g/dL (13.5-17.5); Lymphocytes # (auto) 0.6 10 ^3/uL (0.4-5.4); Lymphocytes % (auto) 2.3 % (10.0-50.0); Mean Corpuscular Hemoglobin 19.3 pg (28.0-32.0); Mean Corpuscular Hgb Conc. 30.1 g/dL (32.0-36.0); Monocytes # (auto) 1.3 10 ^3/uL (0-1.3); Monocytes % (auto) 4.8 % (0.0-12.0); Neutrophils # (auto) 24.7 10 ^3/uL (1.6-8.6); Neutrophils % (auto) 92.6 % (37.0-80.0); Red Blood Cells 4.85 10^6/uL (4.5-5.90); Red Cell Distribution Width 17.4 % (11.8-14.3); White Blood Cell 26.6 10^3/uL (4.4-10.8)
[2022-10-23 16:29] LABS: Potassium 3.8 mmol/L (3.5-5.1)
[2022-10-23 16:37] LABS: Albumin 3.1 g/dL (3.4-5.0); BUN/Creatinine Ratio 14.4 (10.0-20.0); Bilirubin, Total 0.9 mg/dL (0.2-1.0); Calcium 8.6 mg/dL (8.5-10.1); Magnesium 2.4 mg/dL (1.6-2.6); Total Protein 7.3 g/dL (6.4-8.2)
[2022-10-23] MEDS ORDERED: AZITHROMYCIN 500MG/ 250ML 250 ML IV ONE (21:30)
[2022-10-23] MEDS ORDERED: PIPERACILLIN-TAZOB 3.375GM 100 ML IV ONE (21:30)
[2022-10-23] MEDS ORDERED: DOCUSATE SOD 100 MG CAP PO PRN (21:45)
[2022-10-23] MEDS ORDERED: ONDANSETRON HCL 4 MG/2 ML VIAL IV PRN (21:45)
[2022-10-23] MEDS ORDERED: ACETAMINOPHEN 325 MG TAB PO PRN (21:45)
[2022-10-23] MEDS ORDERED: IBUPROFEN 600 MG TAB PO PRN (21:45)
[2022-10-23] MEDS ORDERED: NITROGLYCERIN 0.4 MG SL TAB SL PRN (22:15)
[2022-10-23 22:24] VITALS: PULSE 88; RESP 16; O2SAT 94
[2022-10-23] MEDS ORDERED: HYDROmorphone HCL 2 MG/ML VL/or syr IV ONE (22:45)
[2022-10-23] MEDS: SODIUM CHLORIDE 0.9% 1,000 ML IV SCH (22:46)
[2022-10-24 00:36] VITALS: BP 106/64; PULSE 94; RESP 18; RESP 91; O2SAT 91
[2022-10-24 05:00] VITALS: BP 122/71; PULSE 89; RESP 20; TEMP 98.2; O2SAT 97
[2022-10-24 09:40] VITALS: BP 132/83; PULSE 75; RESP 18; TEMP 97.8; O2SAT 97
[2022-10-24] MEDS: levoFLOXacin 250MG 50 ML IV SCH (09:59)
[2022-10-24] MEDS ORDERED: AZITHROMYCIN 500MG/ 250ML 250 ML IV SCH (10:00)
[2022-10-24 13:33] VITALS: BP 137/80; PULSE 90; RESP 16; TEMP 97.7; O2SAT 96
[2022-10-24] MEDS: SODIUM CHLORIDE 0.9% 1,000 ML IV SCH (14:25)
[2022-10-24 19:50] VITALS: BP 125/84; PULSE 88; RESP 19; TEMP 97.9
[2022-10-24 22:00] VITALS: BP 125/84; PULSE 88; RESP 19; TEMP 97.9; O2SAT 97
[2022-10-25 06:02] LABS: Eosinophils # (auto) 0 10 ^3/uL (0-0.8); Hemoglobin 9.2 g/dL (13.5-17.5); Monocytes # (auto) 0.5 10 ^3/uL (0-1.3)
[2022-10-25 06:05] LABS: Basophils # (auto) 0 10 ^3/uL (0-0.2); Basophils % (auto) 0.4 % (0.0-2.0); Eosinophils % (auto) 0.5 % (0.0-7.0); Hematocrit 29.7 % (41.0-53.0); Lymphocytes % (auto) 10.8 % (10.0-50.0); Mean Corpuscular Hemoglobin 19.8 pg (28.0-32.0); Mean Corpuscular Volume 63.9 fL (80.0-100.0); Monocytes % (auto) 5.2 % (0.0-12.0); Neutrophils # (auto) 7.4 10 ^3/uL (1.6-8.6); Neutrophils % (auto) 83.1 % (37.0-80.0); Red Blood Cells 4.64 10^6/uL (4.5-5.90); Red Cell Distribution Width 17.7 % (11.8-14.3); White Blood Cell 8.9 10^3/uL (4.4-10.8)
[2022-10-25] MEDS: SODIUM CHLORIDE 0.9% 1,000 ML IV SCH ×2 (06:11→20:16)
[2022-10-25 06:18] LABS: Potassium 3.7 mmol/L (3.5-5.1)
[2022-10-25 06:28] LABS: Albumin 2.3 g/dL (3.4-5.0); BUN/Creatinine Ratio 21.5 (10.0-20.0); Bilirubin, Total 0.2 mg/dL (0.2-1.0); Calcium 8.1 mg/dL (8.5-10.1); Total Protein 6.4 g/dL (6.4-8.2)
[2022-10-25 06:31] LABS: % Iron Saturation 3.4 % (20-55)
[2022-10-25 07:32] LABS: Urine Amorphous Crystal MOD /hpf (None Seen); Urine Bacteria FEW /hpf (None Seen); Urine Blood Negative /uL (Negative); Urine Clarity HAZY (Clear); Urine Protein, UAD Negative (Negative); Urine Specific Gravity 1.015 (1.001-1.035); Urine WBC 2 /hpf (0 - 3)
[2022-10-25 07:35] LABS: Urine Color STRAW (Yellow)
[2022-10-25 07:53] LABS: Alcohol, Urine < 3.0 mg/dL (0-10); Amphetamine Screen, Urine POSITIVE (NEGATIVE); Barbiturate Scree,Urine NEGATIVE (NEGATIVE); Benzodiazephine Screen, Urine NEGATIVE (NEGATIVE); Cannabinoid Screen, Urine NEGATIVE (NEGATIVE); Cocaine Screen, Urine NEGATIVE (NEGATIVE); Phencyclidine Screen, Urine NEGATIVE (NEGATIVE)
[2022-10-25 08:00] VITALS: BP 124/80; PULSE 118; PULSE 74; RESP 14; RESP 18; TEMP 97.8; O2SAT 99
[2022-10-25 08:01] LABS: Opiate Scree,Urine NEGATIVE (NEGATIVE)
[2022-10-25] MEDS: levoFLOXacin 250MG 50 ML IV SCH (10:01)
[2022-10-25 11:01] VITALS: BP 126/86; PULSE 86; RESP 17; TEMP 98.4; O2SAT 97
[2022-10-25 13:16] VITALS: BP 125/80; PULSE 101; RESP 18; TEMP 98.2; O2SAT 96
[2022-10-25] MEDS: LIDOCAINE 5% TOPICAL PATCH TOP SCH (13:48)
[2022-10-25] MEDS: FERROUS SULFATE 325mg EC TAB PO ONE ×2 (13:49→13:53)
[2022-10-25 21:10] LABS: Alcohol, Urine < 3.0 mg/dL (0-10); Amphetamine Screen, Urine NEGATIVE (NEGATIVE); Barbiturate Scree,Urine NEGATIVE (NEGATIVE); Benzodiazephine Screen, Urine NEGATIVE (NEGATIVE); Cannabinoid Screen, Urine NEGATIVE (NEGATIVE); Cocaine Screen, Urine NEGATIVE (NEGATIVE); Opiate Scree,Urine NEGATIVE (NEGATIVE); Phencyclidine Screen, Urine NEGATIVE (NEGATIVE)
[2022-10-26 09:34] VITALS: BP 124/82; PULSE 103; RESP 20; TEMP 98.2; O2SAT 96
[2022-10-26] MEDS: LIDOCAINE 5% TOPICAL PATCH TOP SCH (10:09)
[2022-10-26] MEDS: levoFLOXacin 250MG 50 ML IV SCH (10:09)
[2022-10-26 13:04] VITALS: BP 123/85; PULSE 94; RESP 16; TEMP 98.1; O2SAT 97
[2022-10-26 13:48] LABS: Basophils # (auto) 0 10 ^3/uL (0-0.2); Basophils % (auto) 0.5 % (0.0-2.0); Hemoglobin 9.5 g/dL (13.5-17.5); Lymphocytes # (auto) 0.9 10 ^3/uL (0.4-5.4); Monocytes % (auto) 5.9 % (0.0-12.0)
[2022-10-26 13:50] LABS: Eosinophils # (auto) 0 10 ^3/uL (0-0.8); Eosinophils % (auto) 0.6 % (0.0-7.0); Hematocrit 31.5 % (41.0-53.0); Lymphocytes % (auto) 12.1 % (10.0-50.0); Mean Corpuscular Hemoglobin 19.4 pg (28.0-32.0); Mean Corpuscular Hgb Conc. 30.1 g/dL (32.0-36.0); Mean Corpuscular Volume 64.4 fL (80.0-100.0); Monocytes # (auto) 0.5 10 ^3/uL (0-1.3); Neutrophils # (auto) 6.2 10 ^3/uL (1.6-8.6); Neutrophils % (auto) 80.9 % (37.0-80.0); Nucleated Red Blood Cells % 0.1 %; Red Blood Cells 4.89 10^6/uL (4.5-5.90); Red Cell Distribution Width 17.6 % (11.8-14.3); White Blood Cell 7.7 10^3/uL (4.4-10.8)
[2022-10-26 13:57] LABS: Potassium 4.4 mmol/L (3.5-5.1)
[2022-10-26] MEDS ORDERED: DOCUSATE SOD 100 MG CAP PO ONE (14:00)
[2022-10-26] MEDS: SODIUM CHLORIDE 0.9% 1,000 ML IV SCH (18:02)
[2022-10-26] MEDS: LACTULOSE 20Gm/30ML SOLN PO SCH (21:21)
[2022-10-26] MEDS: DOCUSATE SOD 100 MG CAP PO SCH (21:21)
[2022-10-26 22:00] VITALS: BP 115/82; PULSE 101; RESP 18; TEMP 98.4; O2SAT 98
[2022-10-27 05:00] VITALS: BP 122/81; PULSE 104; RESP 20; TEMP 98.1; O2SAT 98
[2022-10-27 08:30] VITALS: BP 118/76; PULSE 105; RESP 16; TEMP 97.8; O2SAT 97
[2022-10-27 09:00] VITALS: BP 118/76; PULSE 105; RESP 16; TEMP 97.8; O2SAT 97
[2022-10-27] MEDS: SODIUM CHLORIDE 0.9% 1,000 ML IV SCH (09:05)
[2022-10-27] MEDS: LIDOCAINE 5% TOPICAL PATCH TOP SCH (09:17)
[2022-10-27] MEDS: LACTULOSE 20Gm/30ML SOLN PO SCH (09:17)
[2022-10-27] MEDS: DOCUSATE SOD 100 MG CAP PO SCH (09:17)
[2022-10-27] MEDS: levoFLOXacin 250MG 50 ML IV SCH (09:17)
[2022-10-27] MEDS ORDERED: LEVO750T8 PO (09:43)
[2022-10-27 13:50] LABS: Basophils # (auto) 0 10 ^3/uL (0-0.2); Eosinophils # (auto) 0.1 10 ^3/uL (0-0.8); Monocytes # (auto) 0.5 10 ^3/uL (0-1.3); Red Cell Distribution Width 17.9 % (11.8-14.3)
[2022-10-27 13:54] LABS: Basophils % (auto) 0.7 % (0.0-2.0); Eosinophils % (auto) 0.7 % (0.0-7.0); Hematocrit 36.2 % (41.0-53.0); Hemoglobin 10.5 g/dL (13.5-17.5); Lymphocytes # (auto) 1.1 10 ^3/uL (0.4-5.4); Lymphocytes % (auto) 14.6 % (10.0-50.0); Mean Corpuscular Hemoglobin 19.6 pg (28.0-32.0); Mean Corpuscular Hgb Conc. 28.9 g/dL (32.0-36.0); Mean Corpuscular Volume 67.7 fL (80.0-100.0); Monocytes % (auto) 6.6 % (0.0-12.0); Neutrophils # (auto) 5.8 10 ^3/uL (1.6-8.6); Neutrophils % (auto) 77.4 % (37.0-80.0); Red Blood Cells 5.34 10^6/uL (4.5-5.90); White Blood Cell 7.5 10^3/uL (4.4-10.8)
[2022-10-27 14:10] LABS: Albumin 2.4 g/dL (3.4-5.0); Anion Gap 4 (5-15); Blood Urea Nitrogen 18 mg/dL (7-18); Calcium 8.2 mg/dL (8.5-10.1); Carbon Dioxide 26 mmol/L (21-32); Chloride 105 mmol/L (98-107); Glucose 95 mg/dL (74-106); Potassium 4.4 mmol/L (3.5-5.1); Sodium 135 mmol/L (136-145)
[2022-10-27 14:25] LABS: Alanine Aminotransferase 45 U/L (16-61); Alkaline Phosphatase 116 U/L (45-117); Aspartate Aminotransferase 29 U/L (15-37); BUN/Creatinine Ratio 19.6 (10.0-20.0); Bilirubin, Total < 0.1 mg/dL (0.2-1.0); GFR African American 112 mL/min; GFR Non-African American 92 mL/min; Total Protein 6.8 g/dL (6.4-8.2)
[2022-10-27 14:31] VITALS: BP 118/76; PULSE 105; RESP 16; TEMP 97.8; O2SAT 92
[2022-10-27 16:36] LABS: Platelet Estimate Adequate
[2022-10-27 16:37] LABS: Anisocytosis Slight; Hypochromia Marked; Ovalocytes FEW
== END 2022-10-27 20:00 | disposition home or self-care (01) | DRG 137 ==
LOC: EDBD 14:10 → EDUNIT# 14:10 → ER 14:10 → OVERFLOW 22:05 → WEST WING 23:52
PROVIDERS: ADMIT Internal Medicine Pulmonary Disease
DX: J15.6 Pneumonia due to other Gram-negative bacteria (principal); E43 Unspecified severe protein-calorie malnutrition; D50.9 Iron deficiency anemia, unspecified; I10 Essential (primary) hypertension; G89.4 Chronic pain syndrome; K59.00 Constipation, unspecified; M41.9 Scoliosis, unspecified; M48.061 Spinal stenosis, lumbar region without neurogenic claudication; Z88.5 Allergy status to narcotic agent; Z88.0 Allergy status to penicillin; Z79.899 Other long term (current) drug therapy; Z79.2 Long term (current) use of antibiotics; Z68.20 Body mass index [BMI] 20.0-20.9, adult
CPT/HCPCS: 36415; 71045; 72040; 72070; 72100; 72148; 74176; 80048; 80053; 80307; 81001; 83540; 83550; 83605; 83690; 83735; 83880; 84484; 85025; 86850; 86900; 86901; 96365; 96372; 96375; 97163; G0378; J2543

== ENCOUNTER 2022-11-13 21:11 | Emergency (ER) | payer MEDICAID ==
[~2022-11-13] VITALS: Ht 182.9 cm; Wt 72.0 kg
[~2022-11-13 21:11] MED LIST changes: -CEPH-510 PO; -ERGO1CAP23 PO; -FER325T PO; +LEVO750T8 PO; -NAP500T PO
[2022-11-13 22:02] LABS: Basophils # (auto) 0.1 10 ^3/uL (0-0.2); Eosinophils # (auto) 0 10 ^3/uL (0-0.8)
[2022-11-13 22:04] LABS: Basophils % (auto) 1.2 % (0.0-2.0); Eosinophils % (auto) 0.9 % (0.0-7.0); Lymphocytes # (auto) 1.2 10 ^3/uL (0.4-5.4); Lymphocytes % (auto) 24.3 % (10.0-50.0); Mean Corpuscular Hemoglobin 19.4 pg (28.0-32.0); Mean Corpuscular Hgb Conc. 31.1 g/dL (32.0-36.0); Mean Corpuscular Volume 62.5 fL (80.0-100.0); Monocytes # (auto) 0.4 10 ^3/uL (0-1.3); Monocytes % (auto) 8.3 % (0.0-12.0); Neutrophils # (auto) 3.3 10 ^3/uL (1.6-8.6); Neutrophils % (auto) 65.3 % (37.0-80.0); Red Blood Cells 4.63 10^6/uL (4.5-5.90); Red Cell Distribution Width 18.3 % (11.8-14.3)
[2022-11-13 22:26] LABS: Alanine Aminotransferase 15 U/L (7-40); Albumin 3.8 g/dL (3.2-4.8); Alkaline Phosphatase 104 U/L (46-116); Anion Gap 5.5 (5-15); Aspartate Aminotransferase 17 U/L (13-40); BUN/Creatinine Ratio 17.9 (10.0-20.0); Bilirubin, Total 0.5 mg/dL (0.2-1.0); Blood Urea Nitrogen 17 mg/dL (9-23); Calcium 8.9 mg/dL (8.5-10.1); Carbon Dioxide 26.5 mmol/L (20-30); Chloride 103 mmol/L (98-107); Glucose 76 mg/dL (74-106); Magnesium 1.9 mg/dL (1.6-2.6); Potassium 4.1 mmol/L (3.5-5.1); Sodium 135 mmol/L (136-145); Total Protein 6.9 g/dL (5.7-8.2)
[2022-11-13 22:44] LABS: INR 1.16 (0.9-1.15); Partial Thromboplastin Time 29.3 SEC (24.5-34.5); Prothrombin Time 12.1 sec (9.3-11.8)
[2022-11-14] MEDS ORDERED: IPRATROPIUM BROM 0.5 MG/2.5ML INH SOL NEB ONE (00:45)
[2022-11-14] MEDS ORDERED: KETOROLAC TROMETH 30 MG/ML 1ML VIAL IM ONE (00:45)
[2022-11-14] MEDS ORDERED: ALBUTEROL SULF 2.5 MG/0.5ML(0.5%) NEB SOLN NEB ONE (00:45)
[2022-11-14] MEDS ORDERED: ALBUTEROL SULF 2.5 MG/0.5ML(0.5%) NEB SOLN ONE (00:46)
[2022-11-14] MEDS ORDERED: IPRATROPIUM BROM 0.5 MG/2.5ML INH SOL ONE (00:47)
[2022-11-14 03:00] VITALS: BP 125/72; PULSE 92; RESP 18; O2SAT 98
== END 2022-11-14 00:55 | disposition home or self-care (01) ==
LOC: EDBD 21:11 → EDSEX 21:11 → ER 21:13
DX: D64.9 Anemia, unspecified (principal); R06.02 Shortness of breath; G89.29 Other chronic pain; I10 Essential (primary) hypertension; F12.10 Cannabis abuse, uncomplicated; Z88.0 Allergy status to penicillin; Z88.6 Allergy status to analgesic agent
CPT/HCPCS: 36415; 71045; 80053; 83735; 83880; 84484; 85025; 85379; 85610; 85730; 93005; 94640; 96372; 99285; J1885; J7644